=== PATIENT | male | born 1980 | race Caucasian/White ===

== ENCOUNTER 2018-11-07 12:37 | Emergency (ER) | payer OTHER, SELFPAY ==
[2018-11-07 12:46] VITALS: BP 131/90; PULSE 68; RESP 16; TEMP 36.4; O2SAT 97; BMI 28.1
--- NOTE | 2018-11-07 12:52 | DI.US.S_ITS ---
PROCEDURE: US ABDOMEN LIMITED INDICATIONS: RUQ PAIN TECHNIQUE: Real-time focused scanning was performed of the abdomen, with image documentation. COMPARISON: None. FINDINGS: Imaged portions of the liver appear to be within normal limits. No focal liver lesions are evident. The gallbladder is unremarkable. There is no cholelithiasis or evidence of gallbladder wall inflammation. The common bile duct is normal in size and measures approximately 3 mm in diameter. The pancreas is within normal limits. Please note that the abdominal aorta and inferior vena cava were not imaged. IMPRESSION: No cholelithiasis or evidence of acute cholecystitis. Dictated by: Hari Correia M.D. on 11/07/2018 at 12:36 Approved by: Hari Correia M.D. on 11/07/2018 at 12:38
--- NOTE | 2018-11-07 12:56 | ED_ITS ---
HPI - Abdominal Pain <[facility] - Last Filed: 11/07/18 15:33> General Chief Complaint: Abdominal Pain Stated Complaint: Right side abdominal pain Time Seen by Provider: 11/07/18 12:45 Source: patient Mode of arrival: ambulatory Limitations: no limitations History of Present Illness HPI narrative: The patient is a 38-year-old male every day smoker for who presents with a chief complaint of right abdominal pain. he states he has had right upper quadrant pain on and off for several months, starting in April. He states in April he had a gallbladder workup including ultrasound. He states that since the pain has come and gone, no association with eating or drinking etc. He states that he vomited once today the pain was so bad. He denies any chest pain, shortness of breath, other abdominal pain. he states the pain radiates down to his groin from his right upper quadrant when significantly bad. He denies any fevers. He denies any dysuria urgency or frequency. He denies any testicular issues. He denies surgical history. Related Data Home Medications Medication Instructions Recorded Confirmed No Known Home Medications 11/07/18 11/07/18 Allergies Allergy/AdvReac Type Severity Reaction Status Date / Time No Known Drug Allergies Allergy Verified 11/07/18 12:46 Review of Systems <[facility]PR[facility] - Last Filed: 11/07/18 15:33> Review of Systems GENERAL: Denies chills, fatigue, malaise, fever, sweats. HEENT: Denies sinus pain, ear pain, sore throat, difficulty swallowing, dizziness. RESPIRATORY: Denies dyspnea, cough, wheezing, hemoptysis, sputum. CARDIOVASCULAR: Denies chest pain, palpitations, orthopnea, edema, GASTROINTESTINAL: See HPI : Denies dysuria, frequency, incontinence, hematuria, urinary retention. MUSCULOSKELETAL: denies weakness, joint pain, or bony pain SKIN: Denies rash, skin lesions, or other NEUROLOGIC: Denies weakness, headache, numbness, change in speech, confusion, seizures, incoordination. PSYCHIATRIC: No concerning psychosocial issues. 12 point review of systems is negative except for those stated above Exam <[facility]PR[facility] - Last Filed: 11/07/18 15:33> Narrative Exam Narrative: GENERAL: This is a well-nourished, well-developed patient, no acute distress HEAD: Atraumatic. Normocephalic. No temporal or scalp tenderness. EYES: Pupils equal round and reactive. Extraocular motions intact. No scleral icterus. No injection or drainage. CARDIOVASCULAR: Regular rate and rhythm without murmurs, gallops, or rubs. RESPIRATORY: Clear to auscultation. Breath sounds equal bilaterally. No wheezes, rales, or rhonchi. No cough. No increased respiratory effort. GASTROINTESTINAL: Abdomen soft, nondistended. No hepato-splenomegaly, or palpable masses. No guarding. diffuse tenderness to palpation of right upper quadrant but no guarding. positive Arellano sign EXTREMITIES: No clubbing, cyanosis, or edema. No joint tenderness, effusion, or edema noted. BACK: Nontender without deformity or crepitance. No flank tenderness. NEURO: AOx3. SKIN: No rash or erythema. Initial Vital Signs Initial Vital Signs: Vital Signs Temperature 97.6 F 11/07/18 12:46 Pulse Rate 68 11/07/18 12:46 Respiratory Rate 16 11/07/18 12:46 Blood Pressure 131/90 11/07/18 12:46 Pulse Oximetry 97 11/07/18 12:46 <Filiberto Jackson DO - Last Filed: 11/07/18 18:32> Initial Vital Signs Initial Vital Signs: Vital Signs Temperature 97.6 F 11/07/18 12:46 Pulse Rate 68 11/07/18 12:46 Respiratory Rate 16 11/07/18 12:46 Blood Pressure 131/90 11/07/18 12:46 Pulse Oximetry 97 11/07/18 12:46 Course <SKYLA Fuentes - Last Filed: 11/07/18 15:33> Orders Ordered: ED Orders 11/07/18 12:52 US abdomen limited Stat 11/07/18 13:25 Amylase Stat Complete Blood Count AUTO DIFF Stat Comprehensive Metabolic Panel Stat Lipase Stat Discontinued Medications Sodium Chloride (Normal Saline 0.9%) 1,000 mls @ 1,000 mls/hr IV BOLUS ONE Stop: 11/07/18 13:50 Last Infusion: 11/07/18 14:51 Dose: 0 mls/hr Admin: 11/07/18 13:30 Dose: 1,000 mls/hr Ondansetron HCl (Zofran) 4 mg IV NOW ONE Stop: 11/07/18 12:52 Last Admin: 11/07/18 13:30 Dose: 4 mg Vital Signs - 8 hr 11/07/18 12:46 11/07/18 14:52 11/07/18 15:17 Temperature 97.6 F Pulse Rate 68 61 55 L Respiratory Rate 16 16 15 Blood Pressure 131/90 129/65 Blood Pressure [Right Arm] 127/84 Pulse Oximetry 97 99 97 <Filiberto Jackson DO - Last Filed: 11/07/18 18:32> Orders Ordered: ED Orders 11/07/18 12:52 US abdomen limited Stat 11/07/18 13:25 Amylase Stat Complete Blood Count AUTO DIFF Stat Comprehensive Metabolic Panel Stat Lipase Stat Discontinued Medications Sodium Chloride (Normal Saline 0.9%) 1,000 mls @ 1,000 mls/hr IV BOLUS ONE Stop: 11/07/18 13:50 Last Infusion: 11/07/18 14:51 Dose: 0 mls/hr Admin: 11/07/18 13:30 Dose: 1,000 mls/hr Ondansetron HCl (Zofran) 4 mg IV NOW ONE Stop: 11/07/18 12:52 Last Admin: 11/07/18 13:30 Dose: 4 mg Vital Signs - 8 hr 11/07/18 12:46 11/07/18 14:52 11/07/18 15:17 Temperature 97.6 F Pulse Rate 68 61 55 L Respiratory Rate 16 16 15 Blood Pressure 131/90 129/65 Blood Pressure [Right Arm] 127/84 Pulse Oximetry 97 99 97 MDM - Abdominal Pain <SKYLA Fuentes - Last Filed: 11/07/18 15:33> Lab Data Result diagrams: 11/07/18 13:25 11/07/18 13:25 Lab Results 11/07/18 11/07/18 Range/Units 13:25 13:25 WBC 7.8 (4.5-11.0) X10^3/uL RBC 5.16 (4.5-5.9) X10^6/uL Hgb 15.3 (13.5-17.5) g/dL Hct 46.9 (41-53) % MCV 90.8 (80-100) fL MCH 29.7 (26-34) PG MCHC 32.7 (30-36) % RDW 13.5 (11.6-14.8) % Plt Count 221 (150-400) X10^3/uL Neut % (Auto) 64.4 (50-75) % Lymph % (Auto) 26.2 (25-40) % Duval % (Auto) 6.4 (3-14) % Eos % (Auto) 2.2 (2-4) % Baso % (Auto) 0.8 (0-2) % Neut # (Auto) 5000 (8148-6085) /uL Lymph # (Auto) 2000 (5578-9611) /uL Duval # (Auto) 500 (0-900) /uL Eos # (Auto) 200 (0-450) /uL Baso # (Auto) 100 (0-100) /uL Sodium 139 (137-145) mmol/L Potassium 4.9 (3.4-5.1) mmol/L Chloride 101 (98-107) mmol/L Carbon Dioxide 27 (22-32) mmol/L BUN 14 (9-20) mg/dL Creatinine 0.90 (0.66-1.25) mg/dL Estimated GFR > 60.0 (>60) mL/min BUN/Creatinine Ratio 15.6 (6-22) Glucose 92 (70-100) mg/dL Calcium 9.3 (8.4-10.2) mg/dL Total Bilirubin 0.4 (0.2-1.3) mg/dL AST 36 (17-59) IU/L ALT 48 (21-72) IU/L Alkaline Phosphatase 104 (38-126) U/L Total Protein 7.7 (6.3-8.2) g/dL Albumin 4.7 (3.5-5.0) g/dL Globulin 3.0 (1.7-4.1) g/dL Albumin/Globulin Ratio 1.6 (1.0-2.8) Amylase 49 (30-110) U/L Lipase 44 (23-300) U/L Point of care testing: Urine Dip Bedside Urine Glucose Negative Bedside Urine Bilirubin - Negative Bedside Urine Ketone - Negative Urine Specific Luning 1.025 Bedside Urine Occult Blood - Negative Bedside Urine pH 5.5 Bedside Urine Protein - Negative Bedside Urine Urobilinogen - Negative Bedside Urine Nitrite - Negative Bedside Urine Leukocytes - Negative Esterase Imaging Data Chest x-ray: Radiologist's impression: [address] [address] Ultrasound Report Signed Patient: Samson Mcintosh R#: [id number] : 1980Acct:[id number] Age/Sex: 38 / MDate of Service: 11/07/18 Loc: ED Accession Number: [id number] Procedure: US abdomen limited Ordering Provider: Karoline De La Cruz PROCEDURE: US ABDOMEN LIMITED INDICATIONS: RUQ PAIN TECHNIQUE: Real-time focused scanning was performed of the abdomen, with image documentation. COMPARISON: None. FINDINGS: Imaged portions of the liver appear to be within normal limits. No focal liver lesions are evident. The gallbladder is unremarkable. There is no cholelithiasis or evidence of gallbladder wall inflammation. The common bile duct is normal in size and measures approximately 3 mm in diameter. The pancreas is within normal limits. Please note that the abdominal aorta and inferior vena cava were not imaged. IMPRESSION: No cholelithiasis or evidence of acute cholecystitis. Dictated by: Hari Correia M.D. on 11/07/2018 at 12:36 Approved by: Hari Correia M.D. on 11/07/2018 at 12:38 MDM Narrative Medical decision making narrative: The patient 38-year-old male who presents with recurrent right upper quadrant pain. He has no acute findings on exam, normal ultrasound no elevated white blood cell count stable lab work. I discussed at length return precautions the emergency department including fever with abdominal pain, inability keep down fluids. Encourage patient to follow up with primary care provider soon as possible. Patient has no questions or concerns upon discharge. <Filiberto Jackson DO - Last Filed: 11/07/18 18:32> Lab Data Lab Results 11/07/18 11/07/18 Range/Units 13:25 13:25 WBC 7.8 (4.5-11.0) X10^3/uL RBC 5.16 (4.5-5.9) X10^6/uL Hgb 15.3 (13.5-17.5) g/dL Hct 46.9 (41-53) % MCV 90.8 (80-100) fL MCH 29.7 (26-34) PG MCHC 32.7 (30-36) % RDW 13.5 (11.6-14.8) % Plt Count 221 (150-400) X10^3/uL Neut % (Auto) 64.4 (50-75) % Lymph % (Auto) 26.2 (25-40) % Duval % (Auto) 6.4 (3-14) % Eos % (Auto) 2.2 (2-4) % Baso % (Auto) 0.8 (0-2) % Neut # (Auto) 5000 (4011-7704) /uL Lymph # (Auto) 2000 (1594-4171) /uL Duval # (Auto) 500 (0-900) /uL Eos # (Auto) 200 (0-450) /uL Baso # (Auto) 100 (0-100) /uL Sodium 139 (137-145) mmol/L Potassium 4.9 (3.4-5.1) mmol/L Chloride 101 (98-107) mmol/L Carbon Dioxide 27 (22-32) mmol/L BUN 14 (9-20) mg/dL Creatinine 0.90 (0.66-1.25) mg/dL Estimated GFR > 60.0 (>60) mL/min BUN/Creatinine Ratio 15.6 (6-22) Glucose 92 (70-100) mg/dL Calcium 9.3 (8.4-10.2) mg/dL Total Bilirubin 0.4 (0.2-1.3) mg/dL AST 36 (17-59) IU/L ALT 48 (21-72) IU/L Alkaline Phosphatase 104 (38-126) U/L Total Protein 7.7 (6.3-8.2) g/dL Albumin 4.7 (3.5-5.0) g/dL Globulin 3.0 (1.7-4.1) g/dL Albumin/Globulin Ratio 1.6 (1.0-2.8) Amylase 49 (30-110) U/L Lipase 44 (23-300) U/L Point of care testing: Urine Dip Bedside Urine Glucose Negative Bedside Urine Bilirubin - Negative Bedside Urine Ketone - Negative Urine Specific Luning 1.025 Bedside Urine Occult Blood - Negative Bedside Urine pH 5.5 Bedside Urine Protein - Negative Bedside Urine Urobilinogen - Negative Bedside Urine Nitrite - Negative Bedside Urine Leukocytes - Negative Esterase Discharge Plan Departure Patient Disposition: Home Clinical Impression: Colic, biliary Abdominal pain Qualifiers: Abdominal location: right upper quadrant Qualified Code(s): R10.11 - Right upper quadrant pain Discharge Date/Time: 11/07/18 15:19 Interventions: ED Discharge Assessment Last Done: 11/07/18 15:17 Instructions: DI for Abdominal Pain-Adult, DI for Biliary Colic Activity Restrictions/Additional Instructions: Your lab work and imaging came back while today. Please follow up with primary care provider. Please come back to the emergency department for any acute concerns such as chest pain, shortness of breath, concern of heart attack or stroke. Please monitor for abdominal pain with fever and will keep down fluids etc. Please follow up with primary care provider as soon as possible. Prescriptions: No Action No Known Home Medications RF: 0 Referrals: [facility] [Provider Group] <Filiberto Jackson DO - Last Filed: 11/07/18 18:32> Cosign ED Attending Nahed Attestation: I was immediately available in the department for consultation. Documentation has been reviewed. I agree with assessment and plan.
[2018-11-07] MEDS: SODIUM CHLORIDE 0.9% 1,000 ML 1000 ML IV (13:30)
[2018-11-07] MEDS: ONDANSETRON 4 MG/2 ML INJ IV (13:30)
[2018-11-07 13:38] LABS: Add Manual Diff / Slide Review NO; Basophils Absolute Auto 100 /uL (0-100); Basophils Percent Auto 0.8 % (0-2); Eosinophils Absolute Auto 200 /uL (0-450); Eosinophils Percent Auto 2.2 % (2-4); Hematocrit 46.9 % (41-53); Hemoglobin 15.3 g/dL (13.5-17.5); Lymphocytes Absolute Auto 2000 /uL (1100-4500); Lymphocytes Percent Auto 26.2 % (25-40); Mean Corpuscular HGB Conc 32.7 % (30-36); Mean Corpuscular Hemoglobin 29.7 PG (26-34); Mean Corpuscular Volume 90.8 fL (80-100); Monocytes Absolute Auto 500 /uL (0-900); Monocytes Percent Auto 6.4 % (3-14); Neutrophils Absolute Auto 5000 /uL (1500-7000); Neutrophils Percent Auto 64.4 % (50-75); Platelet Count 221 X10^3/uL (150-400); Red Blood Cell Count 5.16 X10^6/uL (4.5-5.9); Red Cell Distribution Width 13.5 % (11.6-14.8); White Blood Cell Count 7.8 X10^3/uL (4.5-11.0)
[2018-11-07 13:45] LABS: Alanine Aminotransferase 48 IU/L (21-72); Albumin 4.7 g/dL (3.5-5.0); Albumin Globulin Ratio 1.6 (1.0-2.8); Alkaline Phosphatase 104 U/L (38-126); Amylase 49 U/L (30-110); Aspartate Aminotransferase 36 IU/L (17-59); BUN Creatinine Ratio 15.6 (6-22); Bilirubin Total 0.4 mg/dL (0.2-1.3); Blood Urea Nitrogen 14 mg/dL (9-20); Calcium 9.3 mg/dL (8.4-10.2); Carbon Dioxide 27 mmol/L (22-32); Chloride 101 mmol/L (98-107); Estimated Glomerular Filt Rate > 60.0 mL/min (>60); Glucose 92 mg/dL (70-100); HEMOLYSIS < 15 (0-50); Lipase 44 U/L (23-300); Potassium 4.9 mmol/L (3.4-5.1); Sodium 139 mmol/L (137-145); Total Protein 7.7 g/dL (6.3-8.2)
[2018-11-07 14:52] VITALS: BP 127/84; PULSE 61; RESP 16; O2SAT 99
[2018-11-07 15:17] VITALS: BP 129/65; PULSE 55; RESP 15; O2SAT 97
== END 2018-11-07 15:19 | disposition home or self-care (01) ==
PROVIDERS: Emergency Provider Nurse Practitioner Family
DX: K80.50 Calculus of bile duct without cholangitis or cholecystitis without obstruction (principal); R11.10 Vomiting, unspecified
CPT/HCPCS: 36591; 76705; 80053; 81003; 82150; 83690; 85025; 96361; 96374; 99283; 99284; J2405